=== PATIENT | female | born 1950 | race Caucasian/White ===

== ENCOUNTER 2019-12-31 13:02 | Outpatient (CLI) | payer OTHER ==
[~2019-12-31 13:02] MED LIST: CIPRO250 MG; FOLIC ACID1 MG; GABAPENTIN400 MG; OSEL75CA PO; TUSSI PRES-B L120 M1 PO; VASOTEC10 MG; ZETIA10 MG; ZOCOR40 MG
== END 2019-12-31 13:11 | disposition home or self-care (01) ==
LOC: TOM 13:02
PROVIDERS: ATTEND Urology
DX: N20.0 Calculus of kidney (principal)